=== PATIENT | female | born 1985 | race Two or more races ===

== ENCOUNTER 2017-07-01 12:07 | Emergency (ER) | payer OTHER ==
[2017-07-01] MEDS ORDERED: FLUORESCEIN SODIUM 1 MG STRIP OP ONE ×2 (12:13→12:19)
[2017-07-01] MEDS ORDERED: PROPARACAINE 0.5% 15 ML OPHT DROP ONE ×2 (12:13→12:19)
--- NOTE | 2017-07-01 12:29 | EDPHY ---
H & P Time Seen by Provider: 07/01/17 12:17 HPI/ROS: Chief Complaint: Right eye injury HPI: 31-year-old woman who works in [employer] was scratched in her right eye by the fingernail of a client at about 9 o'clock this morning. She had immediate pain in that eye has had some persistent aching since then. No vision changes. She wears glasses but is not wear contacts. No discharge. No history of prior eye injuries in the past. She is up-to-date in her immunizations. My ROS PMH: Denies Social History: No smoking, no alcohol, no recreational drug use Family History: non-contributory Physical Exam: General: Awake, alert, no acute distress Eye Exam Visual Acuity: Intact OU EOM: Intact OU Visual Conn: Intact OU Pupil: Equal, round and reactive to light and accomodation OU External: Lids, lashes and margins normal OU Slit Lamp; Normal Conjuctiva, Iris normal, Cornea normal, Anterior chambers clear without cells or flare, no hyphema, normal angles Fluorosceine exam: A small area of uptake over the iris in the 10 o'clock position Constitutional: Initial Vital Signs Temperature (C) 36.8 C 07/01/17 12:13 Heart Rate 74 07/01/17 12:13 Respiratory Rate 16 07/01/17 12:13 Blood Pressure 127/74 H 07/01/17 12:13 O2 Sat (%) 95 07/01/17 12:13 O2 Delivery Mode Room Air Allergies/Adverse Reactions: No Known Allergies Allergy (Unverified 07/01/17 12:36) Home Medications: Medication Instructions Recorded Cytomel 07/01/17 Levothyroxine 07/01/17 Progesterone 07/01/17 TESTOSTERONE 07/01/17 Medical Decision Making ED Course/Re-evaluation: 31-year-old woman was small corneal abrasion without significant defect. No evidence of iritis. Will start her on erythromycin prophylactically. She has been given 0.05% proparacaine that she can use for analgesia. Follow up with Ophthalmology if symptoms are not improving. Departure - Departure Disposition: Home, Routine, Self-Care Clinical Impression: Corneal abrasion Condition: Good Instructions: Erythromycin (Into the eye), Corneal Abrasion (ED) Additional Instructions: Apply the erythromycin ointment every 4 hours while awake for the next 2 days. You may use the proparacaine, 0.05% 1-2 drops every 30 minutes as needed for pain for the next 2 days. Return to the emergency department for increasing eye pain, vision changes, discharge from her eye, or any other concerns. Follow up with Ophthalmology in 3-4 days if symptoms are not improving. Referrals: Rajiv Mas MD [Medical Doctor] - As per Instructions
[2017-07-01] MEDS ORDERED: ERYTHROMYCIN 0.5% 1 GM OPHT.OINT ONE (12:34)
[2017-07-01] MEDS ORDERED: ERYTHROMYCIN 0.5% 1 GM OPHT.OINT RTEYE ONE (12:36)
[2017-07-01 13:07] VITALS: BP 127/74; PULSE 74; RESP 16; TEMP 98.2; O2SAT 95
== END 2017-07-01 12:47 | disposition home or self-care (01) ==
LOC: CED 12:07
DX: S05.01XA Injury of conjunctiva and corneal abrasion without foreign body, right eye, initial encounter (principal); W50.4XXA Accidental scratch by another person, initial encounter; Y92.69 Other specified industrial and construction area as the place of occurrence of the external cause; Y99.0 Civilian activity done for income or pay; Y93.89 Activity, other specified